=== PATIENT | female | born 1995 | race Caucasian/White ===

== ENCOUNTER 2017-03-13 16:52 | Emergency (ER) | payer BC ==
--- NOTE | 2017-03-13 17:02 | ED ---
Lower Extremity - HPI Summary HPI Summary: 21 YEAR OLD FEMALE PRESENTS WITH COMPLAINS OF LEFT ANKLE/BLOOM PAIN AFTER RUNNING - History of Current Complaint Chief Complaint: UCLowerExtremity Stated Complaint: ANKLE Time Seen by Provider: 03/13/17 16:59 Hx Obtained From: Patient Hx Last Menstrual Period: 03/07/17 Onset of Pain: Days Onset/Duration: Days Severity Initially: Moderate Severity Currently: Moderate Pain Scale Used: 0-10 Numeric - 7 - Allergies/Home Medications Allergies/Adverse Reactions: Allergies Allergy/AdvReac Type Severity Reaction Status Date / Time No Known Allergies Allergy Verified 03/13/17 16:54 PMH/Surg Hx/FS Hx/Imm Hx Previously Healthy: Yes Endocrine/Hematology History: Denies: Hx Diabetes, Hx Thyroid Disease Cardiovascular History: Denies: Hx Congestive Heart Failure, Hx Deep Vein Thrombosis, Hx Hypertension , Hx Myocardial Infarction, Hx Pacemaker/ICD Respiratory History: Denies: Hx Asthma, Hx Chronic Obstructive Pulmonary Disease (COPD), Hx Lung Cancer, Hx Pneumonia, Hx Pulmonary Embolism GI History: Denies: Hx Gall Bladder Disease, Hx Gastrointestinal Bleed, Hx Ulcer, Hx Urosepsis History: Denies: Hx Kidney Stones, Hx Renal Disease Musculoskeletal History: Reports: Other Musculoskeletal History - mid to low back pain, injury 2 weeks ago Sensory History: Denies: Hx Hearing Aid Neurological History: Denies: Hx Dementia, Hx Migraine, Hx Seizures, Hx Transient Ischemic Attacks (TIA) Psychiatric History: Denies: Hx Anxiety, Hx Depression, Hx Panic Disorder, Hx Schizophrenia, Hx Bipolar Disorder - Surgical History Surgery Procedure, Year, and Place: WISDOM TEETH REMOVED 2013 Infectious Disease History: No Infectious Disease History: Denies: Hx Clostridium Difficile, Hx Hepatitis, Hx Human Immunodeficiency Virus (HIV), Hx of Known/Suspected MRSA, Hx Shingles, Hx Tuberculosis, Hx Known/ Suspected VRE, Hx Known/Suspected VRSA, History Other Infectious Disease, Traveled Outside the [place] in Last 30 Days - Family History Known Family History: Positive: None - Social History Alcohol Use: None Substance Use Type: Reports: None Hx Tobacco Use: No Smoking Status (MU): Never Smoked Tobacco Have You Smoked in the Last Year: No Review of Systems Constitutional: Negative Eyes: Negative ENT: Negative Cardiovascular: Negative Respiratory: Negative Gastrointestinal: Negative Genitourinary: Negative Positive: Other - LEFT BLOOM PAIN Skin: Negative All Other Systems Reviewed And Are Negative: Yes Physical Exam Triage Information Reviewed: Yes Vital Signs On Initial Exam: Initial Vitals Temp Pulse Resp Pulse Ox 36.2 C 92 16 100 03/13/17 16:55 03/13/17 16:55 03/13/17 16:55 03/13/17 16:55 Vital Signs Reviewed: Yes Appearance: Positive: Well-Appearing Skin: Positive: Warm Head/Face: Positive: Normal Head/Face Inspection Eyes: Positive: Normal ENT: Positive: Normal ENT inspection Neck: Positive: Supple Respiratory/Lung Sounds: Positive: Clear to Auscultation Abdomen Description: Positive: Nontender Musculoskeletal: Positive: Other - LEFT BLOOM PAIN LEFT ANKLE PAIN Neurological: Positive: Normal Diagnostics - Vital Signs Vital Signs Temp Pulse Resp Pulse Ox 03/13/17 16:55 36.2 C 92 16 100 - Laboratory Lab Statement: Any lab studies that have been ordered have been reviewed, and results considered in the medical decision making process. Lower Extremity Course/Dx - Diagnoses Differential Diagnosis/HQI/PQRI: Positive: Contusion Provider Diagnoses: Left ankle pain, Pain in left bloom Discharge - Discharge Plan Condition: Stable Disposition: HOME Prescriptions: Ibuprofen TAB* [Motrin TAB* 800 MG] 800 mg PO Q8H #30 tab Patient Education Materials: Swollen Joint (ED) Referrals: Steve Goodwin MD [Medical Doctor] - Kirstie Flores MD [Primary Care Provider] -
--- NOTE | 2017-03-13 17:28 | RAD ---
HISTORY: Left lower tibial pain COMPARISONS: None VIEWS: 3, Frontal, lateral, and oblique views of the left ankle and distal foreleg FINDINGS: BONE DENSITY: Normal. BONES: There is no displaced fracture. JOINTS: There is no arthropathy. ALIGNMENT: There is no dislocation. SOFT TISSUES: Unremarkable. OTHER FINDINGS: None. IMPRESSION: NO ACUTE OSSEOUS INJURY. IF SYMPTOMS PERSIST, RECOMMEND REPEAT IMAGING.
== END 2017-03-13 17:41 | disposition home or self-care (01) ==
LOC: UCEAST 16:52
DX: M25.572 Pain in left ankle and joints of left foot (principal); M79.662 Pain in left lower leg
CPT/HCPCS: 99213; G0463

== ENCOUNTER 2018-01-18 20:02 | Emergency (ER) | payer BC ==
[2018-01-18 20:19] VITALS: BP 148/93
--- NOTE | 2018-01-18 20:47 | UC ---
Ear Complaint HPI - HPI Summary HPI Summary: ear ache for 3 days with some hearing loss--she has a history of multiple ear infections - History of Current Complaint Chief Complaint: UCEar Stated Complaint: EAR ACHE Time Seen by Provider: 01/18/18 20:33 Hx Obtained From: Patient Hx Last Menstrual Period: one week ago ?: No Onset/Duration: Gradual Onset, Lasting Days - 3, Still Present Pain Intensity: 7 Pain Scale Used: 0-10 Numeric Aggravating Factors: Nothing Alleviating Factors: Nothing Associated Signs/Symptoms: Positive: Hearing Loss - Allergies/Home Medications Allergies/Adverse Reactions: Allergies Allergy/AdvReac Type Severity Reaction Status Date / Time No Known Allergies Allergy Verified 01/18/18 20:19 Home Medications: Home Medications Ethinyl Estradiol/Drospirenone [Rosy 28 Tablet] 1 tab PO DAILY 01/18/18 [ History Confirmed 01/18/18] PMH/Surg Hx/FS Hx/Imm Hx Previously Healthy: Yes Other History Of: Negative For: HIV, Hepatitis B, Hepatitis C - Surgical History Surgical History: Yes Surgery Procedure, Year, and Place: WISDOM TEETH REMOVED 2013 - Family History Known Family History: Positive: None - Social History Occupation: Employed Full-time Lives: With Family Alcohol Use: None Substance Use Type: None Smoking Status (MU): Never Smoked Tobacco Have You Smoked in the Last Year: No Review of Systems Constitutional: Negative Skin: Negative Eyes: Negative ENT: Ear Ache - right Respiratory: Negative Cardiovascular: Negative Gastrointestinal: Negative Genitourinary: Negative Motor: Negative Neurovascular: Negative Musculoskeletal: Negative Neurological: Negative Psychological: Negative Is Patient Immunocompromised?: No All Other Systems Reviewed And Are Negative: Yes Physical Exam Triage Information Reviewed: Yes Appearance: Well-Appearing, No Pain Distress, Well-Nourished Vital Signs: Initial Vital Signs Temp 97.8 F 01/18/18 20:16 Pulse 85 01/18/18 20:16 Resp 18 01/18/18 20:16 BP 148/93 01/18/18 20:16 Pulse Ox 100 01/18/18 20:16 Vital Signs Reviewed: Yes Eye Exam: Normal Eyes: Positive: Conjunctiva Clear ENT Exam: Normal ENT: Positive: Normal ENT inspection, Hearing grossly normal, Pharynx normal, Nasal congestion, TMs normal - left, TM bulging - right, Uvula midline. Negative: Tonsillar swelling, Trismus, Muffled voice, Hoarse voice, Dental tenderness, Sinus tenderness Dental Exam: Normal Neck exam: Normal Neck: Positive: Supple, Nontender, No Lymphadenopathy Respiratory Exam: Normal Respiratory: Positive: Chest non-tender, Lungs clear, Normal breath sounds, No respiratory distress, No accessory muscle use Cardiovascular Exam: Normal Cardiovascular: Positive: RRR, No Murmur, Pulses Normal, Brisk Capillary Refill Musculoskeletal Exam: Normal Musculoskeletal: Positive: Strength Intact, ROM Intact, No Edema Neurological Exam: Normal Neurological: Positive: Alert, Muscle Tone Normal Psychological Exam: Normal Skin Exam: Normal Ear Complaint Course/Dx - Course Course Of Treatment: Augmentin, tylenol, ibuprofen follow bp with pcp and ear infection with Dr. luna - Differential Dx/Diagnosis Provider Diagnoses: ROM, elevated blood pressure without hx of hypertension Discharge - Sign-Out/Discharge Documenting (check all that apply): Patient Departure - Discharge Plan Condition: Stable Disposition: HOME Prescriptions: Amoxicillin/Clavulanate TAB* [Augmentin TAB 875*] 875 mg PO BID #19 tab Patient Education Materials: Ibuprofen (By mouth), Ear Infection (ED), Hypertension (ED) Referrals: Kirstie Flores MD [Primary Care Provider] - 2 Weeks Remington Luna MD [Medical Doctor] - 1 Week - Billing Disposition and Condition Condition: STABLE Disposition: Home
[2018-01-18] MEDS ORDERED: Amoxicillin/Clavulanate TAB* 875 MG PO ONE (20:57)
== END 2018-01-18 21:12 | disposition home or self-care (01) ==
LOC: UCEAST 20:02
DX: H66.91 Otitis media, unspecified, right ear (principal); R03.0 Elevated blood-pressure reading, without diagnosis of hypertension
CPT/HCPCS: 99213; A9270-GY; G0463

== ENCOUNTER → 2018-04-23 18:21 | Emergency (ER) | payer BC ==
[~2018-04-23 18:21] MED LIST: Aspirin 81 mg CHEW TAB* 81 MG TAB.CHEW ONE; Aspirin 81 mg CHEW TAB* 81 MG TAB.CHEW PO ONE; Aspirin EC TAB* 325 MG PO ONE; Nitrofurantoin Macrocrystals* 100 MG CAP PO ONE
[2018-04-23 19:26] LABS: ABS Basophils 0 10^3/ul (0-0.2); ABS Eosinophils 0 10^3/ul (0-0.6); ABS Lymphocytes 3.3 10^3/ul (1.0-4.8); ABS Monocytes 0.8 10^3/ul (0-0.8); ABS Neutrophils 4.3 10^3/ul (1.5-7.7); ABS Nucleated RBC 0 10^3/ul; Eosinophil % 0.5 % (0-6); Hematocrit 42 % (35-47); Hemoglobin 14.4 g/dl (12.0-16.0); Lymphocyte % 39.3 % (25-47); Mean Corpuscular HGB Conc 34 g/dl (31-36); Mean Corpuscular Hemoglobin 30 pg (27-31); Mean Corpuscular Volume 88 fL (80-97); Mean Platelet Volume 7.9 um3 (7.4-10.4); Nucleated Red Blood Cells % 0.1; Platelet Count 321 10^3/ul (150-450); Red Cell Distribution Width 14 % (10.5-15); White Blood Count 8.4 10^3/ul (3.5-10.8)
[2018-04-23 19:43] LABS: EGFR Non-African American 99.5 (>60)
[2018-04-23 20:11] LABS: Urine Appearance Clear; Urine Blood 1+ (Negative); Urine Color Yellow; Urine Ketones Negative (Negative); Urine Protein Negative (Negative); Urine Red Blood Cell Absent (Absent); Urine Specific Gravity 1.005 (1.010-1.030); Urine Urobilinogen Negative (Negative); Urine White Blood Cell Trace(0-5/hpf) (Absent)
[2018-04-23 21:14] VITALS: BP 131/79
--- NOTE | 2018-04-23 22:07 | ED ---
HPI Chest Pain - HPI Summary HPI Summary: 22-year-old female presents with chest pain for the past couple hours. States it is located on left-sided chest. She states that it is dull in nature. States is reproducible. She states that she has some left arm numbness that has resolved. She hasn't taking anything for her symptoms. She denies any shortness breath. No palpitations. She has history of a murmur. Has had an echo before as her brother has history of aortic stenosis. No bowel pain. She states she's been vomiting for the past couple days. She states that she felt sick the past couple days. No fevers. She admits to some generalized body aches. She denies any urinary symptoms. No cough. She has pain doesn't change with movement or position. - History of Current Complaint Chief Complaint: EDChestPainROMI Time Seen by Provider: 04/23/18 18:52 Hx Last Menstrual Period: one week ago Pain Intensity: 9 - Allergy/Home Medications Allergies/Adverse Reactions: Allergies Allergy/AdvReac Type Severity Reaction Status Date / Time No Known Allergies Allergy Verified 04/23/18 18:38 PMH/Surg Hx/FS Hx/Imm Hx Endocrine/Hematology History: Denies: Hx Diabetes, Hx Thyroid Disease Cardiovascular History: Denies: Hx Congestive Heart Failure, Hx Deep Vein Thrombosis, Hx Hypertension , Hx Myocardial Infarction, Hx Pacemaker/ICD Respiratory History: Denies: Hx Asthma, Hx Chronic Obstructive Pulmonary Disease (COPD), Hx Lung Cancer, Hx Pneumonia, Hx Pulmonary Embolism GI History: Denies: Hx Gall Bladder Disease, Hx Gastrointestinal Bleed, Hx Ulcer, Hx Urosepsis History: Denies: Hx Kidney Stones, Hx Renal Disease Musculoskeletal History: Reports: Other Musculoskeletal History - mid to low back pain, injury 2 weeks ago Sensory History: Denies: Hx Hearing Aid Neurological History: Denies: Hx Dementia, Hx Migraine, Hx Seizures, Hx Transient Ischemic Attacks (TIA) Psychiatric History: Denies: Hx Anxiety, Hx Depression, Hx Panic Disorder, Hx Schizophrenia, Hx Bipolar Disorder - Surgical History Surgery Procedure, Year, and Place: WISDOM TEETH REMOVED 2013 Infectious Disease History: No Infectious Disease History: Denies: Hx Clostridium Difficile, Hx Hepatitis, Hx Human Immunodeficiency Virus (HIV), Hx of Known/Suspected MRSA, Hx Shingles, Hx Tuberculosis, Hx Known/ Suspected VRE, Hx Known/Suspected VRSA, History Other Infectious Disease, Traveled Outside the [place] in Last 30 Days - Family History Known Family History: Positive: None, Cardiac Disease - Social History Alcohol Use: None Substance Use Type: Reports: None Hx Tobacco Use: No Smoking Status (MU): Never Smoked Tobacco Have You Smoked in the Last Year: No Review of Systems Negative: Fever Positive: Chest Pain Negative: Shortness Of Breath, Cough Negative: Abdominal Pain All Other Systems Reviewed And Are Negative: Yes Physical Exam Triage Information Reviewed: Yes Vital Signs On Initial Exam: Initial Vitals Temp Pulse Resp BP Pulse Ox 98.8 F 103 20 130/98 98 04/23/18 18:34 04/23/18 18:34 04/23/18 18:34 04/23/18 18:34 04/23/18 18:34 Vital Signs Reviewed: Yes Appearance: Positive: Well-Appearing Skin: Positive: Warm, Dry Head/Face: Positive: Normal Head/Face Inspection Eyes: Positive: Normal, Conjunctiva Clear ENT: Positive: Pharynx normal Respiratory/Lung Sounds: Positive: Clear to Auscultation, Breath Sounds Present , Other - reproducible chest pain Cardiovascular: Positive: Normal, RRR Abdomen Description: Positive: Nontender, Soft Bowel Sounds: Positive: Present Musculoskeletal: Positive: Normal Neurological: Positive: Normal Psychiatric: Positive: Normal Diagnostics - Vital Signs Vital Signs Temp Pulse Resp BP Pulse Ox 04/23/18 21:02 89 13 131/79 94 04/23/18 21:00 99 24 96 04/23/18 20:32 97 16 119/90 95 04/23/18 20:02 103 21 130/80 94 04/23/18 20:00 99 17 96 04/23/18 19:43 94 22 119/79 96 04/23/18 19:02 126/87 04/23/18 18:34 98.8 F 103 20 130/98 98 - Laboratory Lab Results: Lab Results 04/23/18 04/23/18 04/23/18 Range/Units 19:15 19:15 19:15 WBC 8.4 (3.5-10.8) 10^3/ul RBC 4.80 (4.00-5.40) 10^6/ul Hgb 14.4 (12.0-16.0) g/dl Hct 42 (35-47) % MCV 88 (80-97) fL MCH 30 (27-31) pg MCHC 34 (31-36) g/dl RDW 14 (10.5-15) % Plt Count 321 (150-450) 10^3/ul MPV 7.9 (7.4-10.4) um3 Neut % (Auto) 50.6 (38-83) % Lymph % (Auto) 39.3 (25-47) % Nelson % (Auto) 9.1 H (0-7) % Eos % (Auto) 0.5 (0-6) % Baso % (Auto) 0.5 (0-2) % Absolute Neuts (auto) 4.3 (1.5-7.7) 10^3/ul Absolute Lymphs (auto) 3.3 (1.0-4.8) 10^3/ul Absolute Monos (auto) 0.8 (0-0.8) 10^3/ul Absolute Eos (auto) 0 (0-0.6) 10^3/ul Absolute Basos (auto) 0 (0-0.2) 10^3/ul Absolute Nucleated RBC 0 10^3/ul Nucleated RBC % 0.1 D-Dimer, Quantitative < 200 (Less Than 230) ng/mL Sodium 139 (135-145) mmol/L Potassium 3.7 (3.5-5.0) mmol/L Chloride 105 (101-111) mmol/L Carbon Dioxide 27 (22-32) mmol/L Anion Gap 7 (2-11) mmol/L BUN 6 (6-24) mg/dL Creatinine 0.72 (0.51-0.95) mg/dL Est GFR ( Amer) 120.4 (>60) Est GFR (Non-Af Amer) 99.5 (>60) BUN/Creatinine Ratio 8.3 (8-20) Glucose 121 H (70-100) mg/dL Lactic Acid (0.5-2.0) mmol/L Calcium 9.6 (8.6-10.3) mg/dL Total Bilirubin 0.40 (0.2-1.0) mg/dL AST 86 H (13-39) U/L ALT 108 H (7-52) U/L Alkaline Phosphatase 59 (34-104) U/L Troponin I 0.00 (<0.04) ng/mL C-Reactive Protein 12.45 H (<8.01) mg/L Total Protein 7.5 (6.4-8.9) g/dL Albumin 4.1 (3.2-5.2) g/dL Globulin 3.4 (2-4) g/dL Albumin/Globulin Ratio 1.2 (1-3) Beta HCG, Quant < 0.60 mIU/mL Urine Color Urine Appearance Urine pH (5-9) Ur Specific [place] (1.010-1.030) Urine Protein (Negative) Urine Ketones (Negative) Urine Blood (Negative) Urine Nitrate (Negative) Urine Bilirubin (Negative) Urine Urobilinogen (Negative) Ur Leukocyte Esterase (Negative) Urine WBC (Auto) (Absent) Urine RBC (Auto) (Absent) Ur Squamous Epith Cells (Absent) Urine Bacteria (Absent) Urine Glucose (Negative) 04/23/18 04/23/18 04/23/18 Range/Units 19:15 19:50 21:18 WBC (3.5-10.8) 10^3/ul RBC (4.00-5.40) 10^6/ul Hgb (12.0-16.0) g/dl Hct (35-47) % MCV (80-97) fL MCH (27-31) pg MCHC (31-36) g/dl RDW (10.5-15) % Plt Count (150-450) 10^3/ul MPV (7.4-10.4) um3 Neut % (Auto) (38-83) % Lymph % (Auto) (25-47) % Nelson % (Auto) (0-7) % Eos % (Auto) (0-6) % Baso % (Auto) (0-2) % Absolute Neuts (auto) (1.5-7.7) 10^3/ul Absolute Lymphs (auto) (1.0-4.8) 10^3/ul Absolute Monos (auto) (0-0.8) 10^3/ul Absolute Eos (auto) (0-0.6) 10^3/ul Absolute Basos (auto) (0-0.2) 10^3/ul Absolute Nucleated RBC 10^3/ul Nucleated RBC % D-Dimer, Quantitative (Less Than 230) ng/mL Sodium (135-145) mmol/L Potassium (3.5-5.0) mmol/L Chloride (101-111) mmol/L Carbon Dioxide (22-32) mmol/L Anion Gap (2-11) mmol/L BUN (6-24) mg/dL Creatinine (0.51-0.95) mg/dL Est GFR ( Amer) (>60) Est GFR (Non-Af Amer) (>60) BUN/Creatinine Ratio (8-20) Glucose (70-100) mg/dL Lactic Acid 1.8 (0.5-2.0) mmol/L Calcium (8.6-10.3) mg/dL Total Bilirubin (0.2-1.0) mg/dL AST (13-39) U/L ALT (7-52) U/L Alkaline Phosphatase (34-104) U/L Troponin I 0.00 (<0.04) ng/mL C-Reactive Protein (<8.01) mg/L Total Protein (6.4-8.9) g/dL Albumin (3.2-5.2) g/dL Globulin (2-4) g/dL Albumin/Globulin Ratio (1-3) Beta HCG, Quant mIU/mL Urine Color Yellow Urine Appearance Clear Urine pH 6.0 (5-9) Ur Specific [place] 1.005 L (1.010-1.030) Urine Protein Negative (Negative) Urine Ketones Negative (Negative) Urine Blood 1+ A (Negative) Urine Nitrate Negative (Negative) Urine Bilirubin Negative (Negative) Urine Urobilinogen Negative (Negative) Ur Leukocyte Esterase 2+ A (Negative) Urine WBC (Auto) Trace(0-5/hpf) (Absent) Urine RBC (Auto) Absent (Absent) Ur Squamous Epith Cells Present A (Absent) Urine Bacteria 2+ A (Absent) Urine Glucose Negative (Negative) Result Diagrams: 04/23/18 19:15 04/23/18 19:15 Lab Statement: Any lab studies that have been ordered have been reviewed, and results considered in the medical decision making process. - Radiology chest Radiology Interpretation Completed By: ED Physician Summary of Radiographic Findings: nad - EKG No standard instances Cardiac Rate: NL EKG Rhythm: Sinus Rhythm Summary of EKG Findings: sinus rhythm Chest Pain Course/Dx - Course Course Of Treatment: 22-year-old female presents with chest pain for the past couple hours. States it is located on left-sided chest. She states that it is dull in nature. States is reproducible. She states that she has some left arm numbness that has resolved. She hasn't taking anything for her symptoms. She denies any shortness breath. No palpitations. She has history of a murmur. Has had an echo before as her brother has history of aortic stenosis. No bowel pain. She states she's been vomiting for the past couple days. She states that she felt sick the past couple days. No fevers. She admits to some generalized body aches. She denies any urinary symptoms. No cough. She has pain doesn't change with movement or position. On exam reproducible chest pain. EKG shows sinus rhythm. 2 troponins negative. D-dimer negative. heart score less than 1. Chest x-ray read by me as normal. explained Results with patient. Will treat as potential costochondritis with ibuprofen. Urine shows a UTI so we'll treat with Macrobid. Told to follow up primary. Patient understands and agrees with plan. - Chest Pain Differential Diagnosis/HQI/PQRI: Acute FL, Chest Wall, Pulmonary Embolism - Diagnoses Provider Diagnoses: Chest pain, UTI (urinary tract infection) Discharge - Sign-Out/Discharge Documenting (check all that apply): Patient Departure - Discharge Plan Condition: Good Disposition: HOME Prescriptions: Nitrofurantoin Monohyd/M-Cryst [Macrobid 100 mg Capsule] 100 mg PO BID #13 cap Patient Education Materials: Urinary Tract Infection in Women (ED), Noncardiac Chest Pain (ED) Forms: *Work Release Referrals: Kirstie Flores MD [Primary Care Provider] - Additional Instructions: take ibuprofen every 6 hours Take macrobid twice a day for 7 days follow up with primary within 5 days Return to ED if develop any new or worsening symptoms - Billing Disposition and Condition Condition: GOOD Disposition: Home
--- NOTE | 2018-04-24 07:56 | RAD ---
Indication: Chest pain. 2 views of the chest including dual energy PA views demonstrate no mediastinal shift. Heart is of normal size and configuration. Lung palacios are clear. When compared to previous exam of December 01, 2016 no significant change is noted. IMPRESSION: No active cardiopulmonary disease is noted. R0
== END | disposition home or self-care (01) ==
LOC: ED 18:21
DX: N39.0 Urinary tract infection, site not specified (principal); R07.9 Chest pain, unspecified
CPT/HCPCS: 36415; 71046; 80053; 81003; 81015; 83605; 84484; 84702; 85025; 85379; 86140; 87086; 93005; 99283; A9270-GY

== ENCOUNTER 2018-10-08 09:25 | Emergency (ER) | payer BC ==
[2018-10-08 09:45] VITALS: BP 127/88
--- NOTE | 2018-10-08 10:03 | UC ---
Back Pain HPI - HPI Summary HPI Summary: 23 yo female presents with left lower back pain since 10/04. 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 No specific injury. On 10/04 she noticed some left lower back pain that was worse with movement and bending. Since that time has progressed and gotten more painful. She has been taking ibuprofen with little relief. The pain now radiates down the back of her left leg. She denies numbness, tingling, saddle anesthesia, loss of bowel/bladder control, dysuria. - History of Current Complaint Chief Complaint: UCBackPain Stated Complaint: BACK INJURY Time Seen by Provider: 10/08/18 10:02 Hx Obtained From: Patient Hx Last Menstrual Period: no period, states ok with pcp Timing: Constant Severity Initially: Moderate Severity Currently: Severe Pain Intensity: 10 Pain Scale Used: 0-10 Numeric - Allergies/Home Medications Allergies/Adverse Reactions: Allergies Allergy/AdvReac Type Severity Reaction Status Date / Time No Known Allergies Allergy Verified 10/08/18 09:38 Home Medications: Home Medications Ibuprofen TAB* [Motrin TAB* 800 MG] 800 mg PO Q6H 10/08/18 [History Confirmed ] PMH/Surg Hx/FS Hx/Imm Hx - Additional Past Medical History Additional PMH: None Other History Of: Negative For: HIV, Hepatitis B, Hepatitis C - Surgical History Surgical History: Yes Surgery Procedure, Year, and Place: WISDOM TEETH REMOVED 2013 - Family History Known Family History: Positive: None, Cardiac Disease - Social History Occupation: Employed Full-time Lives: With Family Alcohol Use: None Substance Use Type: None Smoking Status (MU): Never Smoked Tobacco Have You Smoked in the Last Year: No Review of Systems All Other Systems Reviewed And Are Negative: Yes Constitutional: Positive: Negative Skin: Positive: Negative Respiratory: Positive: Negative Cardiovascular: Positive: Negative Neurovascular: Positive: Negative Musculoskeletal: Positive: Other: - Low back pain Neurological: Positive: Negative Psychological: Positive: Negative Physical Exam - Summary Physical Exam Summary: GENERAL: NAD. WDWN. No pain distress. SKIN: No rashes, sores, lesions, or open wounds. NECK: Supple. FROM. Nontender. No lymphadenopathy. CHEST: CTAB. No r/r/w. No accessory muscle use. Breathing comfortably and in no distress. CV: RRR. Without m/r/g. Pulses intact. Cap refill <2seconds MSK: TTP over LEFT lumbar paraspinal muscles and LEFT SI. Pain with flexion and extension of spine. Positive SLR LEFT for low back pain without radiation. Strength 5/5 B/L LEs including dorsiflexion and plantar flexion. FROM B/L LEs. No edema. NEURO: Alert. Sensations intact B/L LEs L3-S1. Reflexes intact PSYCH: Age appropriate behavior. Triage Information Reviewed: Yes Vital Signs: Initial Vital Signs Temp 97.5 F 10/08/18 09:39 Pulse 96 10/08/18 09:39 Resp 18 10/08/18 09:39 BP 127/88 10/08/18 09:39 Pulse Ox 99 10/08/18 09:39 Vital Signs Reviewed: Yes Back Pain Course/Dx - Course Course Of Treatment: Suspect sciatica. Will rx for flexeril and prednisone. For acute pain - mostly at bedtime, will rx for a short supply of norco not to be taken with flexeril. Pt voiced understanding and is agreeable with the plan. Advised to practice stretching and gentle movements of her lower back as per handout. iSTOP Reference #: [id number] - Differential Dx/Diagnosis Provider Diagnosis: Sciatica Discharge - Sign-Out/Discharge Documenting (check all that apply): Patient Departure All imaging exams completed and their final reports reviewed: No Studies - Discharge Plan Condition: Stable Disposition: HOME Prescriptions: Cyclobenzaprine TAB* [Flexeril 10 MG TAB*] 10 mg PO BID PRN #14 tab PRN Reason: Pain HYDROcodone/ACETAMIN 5-325 MG* [[place] 5-325 TAB*] 1 tab PO BID PRN #8 tab MDD 2 PRN Reason: Pain predniSONE TAB* [Deltasone 20 MG TAB*] 20 mg PO DAILY #10 tab Patient Education Materials: Sciatica (ED), Lower Back Exercises (ED) Referrals: Kirstie Flores MD [Primary Care Provider] - Additional Instructions: If you develop a fever, shortness of breath, chest pain, new or worsening symptoms - please call your PCP or go to the ED. May continue to take ibuprofen as directed for discomfort. Do not take the FLEXERIL and NORCO at the same time/together as these may make you too drowsy. - Billing Disposition and Condition Condition: STABLE Disposition: Home
== END 2018-10-08 10:41 | disposition home or self-care (01) ==
LOC: UCEAST 09:25
DX: M54.42 Lumbago with sciatica, left side (principal)
CPT/HCPCS: 99212; G0463

== ENCOUNTER 2019-07-21 09:06 | Emergency (ER) | payer BC ==
--- OUTSIDE RECORDS SUMMARY | 2019-07-21 09:12 | XMS REPORT | Continuity of Care Document ---
:1995 External Reference #:[id number] Author Name Govind Suh JR, DO Address [address], [place] [address] Care Team Providers Name Role Phone Kirstie Flores MD Care Team Information Claim Analyst [phone] Problems Active Problems Provider Date Cervicovaginal cytology: Low grade squamous Kirstie Folres MD Onset: 2016 intraepithelial lesion Polycystic ovary syndrome Govind Suh JR, DO Onset: 05/29/2019 Social History Type Date Description Comments Sex Unknown Tobacco Use Start: Unknown Never Smoked Cigarettes ETOH Use Does Not Drink Alcohol Recreational Drug Use Does Not Use Drugs Tobacco Use Start: Unknown Patient has never smoked Smoking Status Reviewed: 06/03/19 Patient has never smoked Exercise Type/Frequency Exercises regularly Seat Belt/Car Seat Always uses seat belt Allergies, Adverse Reactions, Alerts Description No Known Drug Allergies Medications Description No Active Medications Medications Administered in Office Medication SIG Qnty Indications Ordering Provider Date No PT Tbco SCRN RNG Kayla Jump, ANP-C 11/20/2018 Injection PT SCRN Tbco Id as Non User Kayla Jump, ANP-C 11/20/2018 Injection No PT Tbco SCRN RNG Kayla Jump, ANP-C 11/06/2018 Injection PT SCRN Tbco Id as Non User Kayla Jump, ANP-C 11/06/2018 Injection Immunizations CPT Code Status Date Vaccine Lot # [id number] Given 04/23/2017 Influenza Virus Vaccine, Quadrivalent, Split, Preservative Free 80591 Given 04/25/2016 Influenza Virus Vaccine, Quadrivalent, Slit Virus, Im Use Vital Signs Date Vital Result Comment 06/03/2019 9:25am BP Systolic 126 mmHg BP Diastolic 78 mmHg Height 69.25 inches 5'9.25" Weight 230.00 lb BMI (Body Mass Index) 33.7 kg/m2 Last Menstrual Period [id number] 0 Parity 0 02/17/2019 7:57am BP Systolic 124 mmHg BP Diastolic 82 mmHg Height 69.25 inches 5'9.25" Weight 221.00 lb BMI (Body Mass Index) 32.4 kg/m2 Last Menstrual Period [id number] 0 Results Test Acquired Date Facility Test Result H/L Range Note Laboratory test 06/03/2019 [facility] Hemoglobin A1c <pending> finding [place], [place] [id number] [phone] Laboratory test 02/20/2019 [facility] Progesterone 79 ng/dL 1 [place] [address] 17Hydroxy [phone] Laboratory test 02/17/2019 [facility] Hemoglobin A1c 6.1 % High 4.0-5.6 2 [place] [address] [phone] Laboratory test 02/06/2019 [facility] FSH 7.0 mIU/mL 3 [place] [address] [phone] TSH 2.21 mcIU/mL Normal 0.34-5.60 4 Testosterone Total 70.57 ng/dL High 8-60 5 HCG < 0.60 mIU/mL 6 Prolactin 10.9 ng/mL Normal 1.0-25.0 7 Estradiol 48 pg/mL 8 1 REFERENCE VALUE < 80 (Follicular) <285 (Luteal) ADDITIONAL INFORMATION This test was developed and its performance characteristics determined by [facility] in a manner consistent with CLIA requirements. This test has not been cleared or approved by the U.S. Food and Drug Administration. Test Performed by: [facility] [address] [place] [address] 2 Therapeutic target for the treatment of diabetes mellitus patients is <7% HBA1C, and in selective patients <6.0%. Please refer to [place] [employer] diabetic care guidelines for further information. 3 Normally menstruating females - Follicular phase 3 - 9 - Mid-cycle peak 4 - 23 - Luteal phase 1 - 6 Postmenopausal females 16 - 114 4 [id number] 5 [id number] 6 <5.0 Negative 5.0 - 25.0 Indeterminate (Repeat testing recommended after 72 hours) >25.0 Positive Perimenopausal women can display HCG levels of up to 20 mIU/mL 7 [id number] 8 Estradiols <40 pg/mL are sent to a reference lab for low range testing. Postmenopausal Females < 20 Ovulating females: by day in cycle relative to LH Peak Follicular phase - 12 10-50 - 4 60-200 Mid-cycle - 1 120-375 Luteal phase + 2 50-155 + 6 60-260 + 12 15-115 Procedures Description No Information Available Medical Devices Description No Information Available Encounters Type Date Location Provider Dx Diagnosis Office Visit 06/03/2019 [facility] Govind Suh JR, DO E28.2 Polycystic ovarian 9:30a syndrome Office Visit 02/17/2019 [facility] Govind Suh JR, DO E28.2 Polycystic ovarian 8:00a syndrome Office Visit 01/30/2019 [facility] Govind Suh JR, DO N91.1 Secondary amenorrhea 2:00p Assessments Date Code Description Provider 06/03/2019 E28.2 Polycystic ovarian syndrome Govind Suh JR, DO 02/17/2019 E28.2 Polycystic ovarian syndrome Govind Suh JR, DO 02/06/2019 N91.1 Secondary amenorrhea Kurt Avalos M.D. 02/06/2019 N91.1 Secondary amenorrhea Laboratory 01/30/2019 N91.1 Secondary amenorrhea Govind Suh JR, DO Plan of Treatment Future Appointment(s):07/10/2019 9:00 am - Govind Suh JR, DO at [facility] 8:30 am - Ultrasounds at [facility]06/03/2019 - Govind Suh JR, DOE28.2 Polycystic ovarian syndromeComments:Will repeat Hemoglobin A1c at this time, consider starting on Metformin for pre-diabetesWill obtain ALL PURPOSE CLERK TVUSN secondary to PCOS, Secondary Amenorrrhea and infertilityContinue Lifestyle changes and [facility] also [facility] re-start OCP's after USN while continuing to work on weight loss,until progress Functional Status Description No Information Available Mental Status Description No Information Available Referrals Refer to Reason for Referral Status Appt Date [facility] Weight loss counseling Closed [facility] [address] [place] [address] [phone]
--- OUTSIDE RECORDS SUMMARY | 2019-07-21 09:12 | XMS REPORT | Continuity of Care Document ---
:1995 External Reference #:[id number] Author Name Kirstie Flores M.D. (transmitted by agent of provider Day Pulliam) Address [address], [place] [address] Care Team Providers Name Role Phone Kirstie Flores MD - Internal Care Team Information Gas Appliance Repairer [phone] Medicine Vikash, Mesfin Faust0. - Obstetrics & Care Team Information Gas Appliance Repairer Gynecology Problems Active Problems Provider Date Cervicovaginal cytology: Low grade squamous Kirstie Flores M.D. Onset: 05/28 intraepithelial lesion Note: condyloma ( had colposcopy) Dr. Nixon Polycystic ovary syndrome Kirstie Flores M.D. Onset: 05/27/2019 Social History Type Date Description Comments Sex Unknown Tobacco Use Start: Unknown Never Smoked Cigarettes Tobacco Use Start: Unknown Never Smoked Cigars Tobacco Use Start: Unknown Never Smoked A Pipe ETOH Use Denies alcohol use Tobacco Use Start: Unknown Patient has never smoked Recreational Drug Use Denies Drug Use Smoking Status Reviewed: 05/27/19 Patient has never smoked Exercise Type/Frequency Exercises regularly Allergies, Adverse Reactions, Alerts Description No Known Drug Allergies Medications Active Medications SIG Qnty Indications Ordering Provider Date No Active Medications Unknown 05/27/2019 History Medications No Active Unknown 02/03/2019 - Medications 02/03/2019 Trazodone HCL 1tablets at 30tabs F51.02 Kirstie Flroes, 02/03/2019 - 50mg bedtime as M.D. 05/27/2019 Tablets needed for sleep Medications Administered in Office Medication SIG Qnty Indications Ordering Provider Date Polio,Unspecified Unknown 02/14/1999 Injection Polio,Unspecified Unknown 10/27/1994 Injection Polio,Unspecified Unknown 03/12/1994 Injection Polio,Unspecified Unknown 1993 Injection Immunizations CPT Code Status Date Vaccine Reaction Lot # [id number] Given 05/27/2019 Influenza Virus Vaccine, shot tolerated well, [id number] Quadrivalent, Split, no immediate reaction Preservative Free 87388 Given 04/29/2018 Influenza Virus Vaccine, No immediate [id number] Quadrivalent, Split, reaction. Preservative Free 35892 Given 04/23/2017 Influenza Virus Vaccine, Quadrivalent, Split, Preservative Free 36273 Given 04/25/2016 Influ Virus Vaccine, [id number] Quadrivalent, Split Virus, [place] [address] Given 06/04/2012 Tdap - Tetanus/Diptheria/Acellula r Pertussis 28761 Given 01/14/2010 Hepatitis A Vaccine Pediatric/Adolescent Dosage 2 Dose Schedule 79905 Given 12/23/2008 Human Papillomavirus Vaccine Types; Nonavalent 3 [place] [address] Given 08/24/2008 Human Papillomavirus Vaccine Types; Nonavalent 3 [place] [address] Given 08/24/2008 Hepatitis A Vaccine Pediatric/Adolescent Dosage 2 Dose Schedule 16546 Given 06/08/2008 Human Papillomavirus Vaccine Types; Nonavalent 3 [place] [address] Given 12/20/2004 Varicella (Chicken Pox) Immunization 59506 Given 11/17/2004 Tdap - Tetanus/Diptheria/Acellula r Pertussis 45793 Given 11/17/2004 Meningococcal Immunization 02515 Given 02/14/1999 Measles Mumps And Rubella MMR 13170 Given 02/14/1999 DTaP Vaccine Younger Than 7 56339 Given 10/27/1994 Measles Mumps And Rubella MMR 51019 Given 10/27/1994 DTaP Vaccine Younger Than 7 73720 Given 02/09/1994 Hep B Pediatric/Adolescent 52415 Given 02/09/1994 DTaP Vaccine Younger Than 7 24025 Given 1993 DTaP Vaccine Younger Than 7 63670 Given 1993 Hep B Pediatric/Adolescent 79876 Given 1993 DTaP Vaccine Younger Than 7 26523 Given 1993 Hep B Pediatric/Adolescent Vital Signs Date Vital Result Comment 05/27/2019 8:59am Height 71 inches 5'11" Weight 231.50 lb Heart Rate 70 /min BP Systolic 121 mmHg BP Diastolic 85 mmHg Body Temperature 98.5 F O2 % BldC Oximetry 97 % BMI (Body Mass Index) 32.3 kg/m2 02/03/2019 9:42am Height 71 inches 5'11" Weight 228.00 lb Heart Rate 74 /min BP Systolic Sitting 119 mmHg BP Diastolic Sitting 85 mmHg O2 % BldC Oximetry 95 % BMI (Body Mass Index) 31.8 kg/m2 Results Description No Information Available Procedures Description No Information Available Medical Devices Description No Information Available Encounters Type Date Location Provider Dx Diagnosis Office Visit 02/03/2019 9:50a [facility] Internal Medicine Kirstie Flores M.D. R51 Headache - Ccmob F51.02 Adjustment insomnia F41.9 Anxiety disorder, unspecified Assessments Date Code Description Provider 05/27/2019 Z00.00 Encounter for general adult medical Kirstie Flores M.D. examination without abno 05/27/2019 Z23 Encounter for immunization Kirstie Flores M.D. 05/27/2019 E28.2 Polycystic ovarian syndrome Kirstie Flores M.D. 05/27/2019 L23.5 Allergic contact dermatitis due to other Kirstie Flores M.D. chemical products 02/03/2019 R51 Headache Kirstie Flores M.D. 02/03/2019 F51.02 Adjustment insomnia Kirstie Flores M.D. 02/03/2019 F41.9 Anxiety disorder, unspecified Kirstie Flores M.D. Plan of Treatment 05/27/2019 - Kirstie Flores M.D.Z00.00 Encounter for general adult medical examination without abnoComments:VACCINES:Flu shot every year in the fall.(F) Pelvic Exam/Pap smear: every 3-5 years up to age 65 if low riskCardiovascular Disease: Cholesterol Screening test every 5 yearsEXERCISE:Leg exercise like walking is essential to maintaining independence!We would like to have a copy on file when you get your Health Care Proxy and Advance Directives completed.Z23 Encounter for kqgixwavlmskG77.2 Polycystic ovarian syndromeNew Labs:Basic Metabolic Panel, Ordered: 05/27/19Hemoglobin A1c (Glyco HGB), Ordered : 05/27/19L23.5 Allergic contact dermatitis due to other chemical productsComments:avoid shaving, use fragn[place] free deodarant , apply the steroid creme on a small patch first to makesure it does not get worse Functional Status Description No Information Available Mental Status Description No Information Available Referrals Description No Information Available
--- OUTSIDE RECORDS SUMMARY | 2019-07-21 09:12 | XMS REPORT | Continuity of Care Document ---
:1993 External Reference #:[id number] Author Name Helen Driscoll MD (transmitted by agent of provider Fern Rogers) Address [address], [place] [address] Care Team Providers Name Role Phone Kirstie Flores MD - Internal Care Team Information Fishing Tackle Repairer Medicine Vikash, Neetu Faust. - Obstetrics & Care Team Information Fishing Tackle Repairer [phone] Gynecology Problems Active Problems Provider Date Cervicovaginal [...] Use Denies Drug Use Smoking Status Reviewed: 06/24/19 Patient has never smoked Exercise Type/Frequency Exercises regularly Allergies, Adverse Reactions, Alerts Description No Known Drug Allergies Medications Active Medications SIG Qnty Indications Ordering Provider Date Amoxicillin Take 1 tab by 20caps R07.0 Helen Driscoll, 06/24/2019 500mg mouth twice MD Capsules daily for 10 days History Medications No Active Unknown 05/27/2019 - Medications 06/24/2019 No Active Unknown 02/03/2019 - Medications 02/03/2019 Trazodone HCL 1tablets at 30tabs F51.02 Kirstie Flores, 02/03/2019 - 50mg bedtime as M.D. 05/27/2019 Tablets needed for sleep Medications Administered in Office Medication SIG Qnty Indications Ordering Provider Date Polio,Unspecified Unknown 02/14/1999 Injection Polio,Unspecified Unknown 10/27/1994 Injection Polio,Unspecified Unknown 03/12/1994 Injection Polio,Unspecified Unknown 1993 Injection Immunizations CPT Code Status Date Vaccine Reaction Lot # [id number] Given 05/27/2019 Influenza Virus Vaccine, shot tolerated well, [id number] Quadrivalent, Split, no immediate reaction Preservative Free 82427 Given 04/29/2018 Influenza Virus Vaccine, No immediate [id number] Quadrivalent, Split, reaction. Preservative Free 41084 Given 04/23/2017 Influenza Virus Vaccine, Quadrivalent, Split, Preservative Free 33920 Given 04/25/2016 Influ Virus Vaccine, [id number] Quadrivalent, Split Virus, [place] [address] Given 06/04/2012 Tdap - Tetanus/Diptheria/Acellula r Pertussis 13658 Given 01/14/2010 Hepatitis A Vaccine Pediatric/Adolescent Dosage 2 Dose Schedule 53531 Given 12/23/2008 Human Papillomavirus Vaccine Types; [place]avalent 3 [place] [address] Given 08/24/2008 Human Papillomavirus Vaccine Types; [place]avalent 3 [place] [address] Given 08/24/2008 Hepatitis A Vaccine Pediatric/Adolescent Dosage 2 Dose Schedule 46688 Given 06/08/2008 Human Papillomavirus Vaccine Types; Nonavalent [address] [place] [address] Given 12/20/2004 Varicella (Chicken Pox) Immunization 83533 Given 11/17/2004 Tdap - Tetanus/Diptheria/Acellula r Pertussis 34307 Given 11/17/2004 Meningococcal Immunization 39749 Given 02/14/1999 Measles Mumps And Rubella MMR 63104 Given 02/14/1999 DTaP Vaccine Younger Than 7 77248 Given 10/27/1994 Measles Mumps And Rubella MMR 19721 Given 10/27/1994 DTaP Vaccine Younger Than 7 11090 Given 02/09/1994 Hep B Pediatric/Adolescent 89426 Given 02/09/1994 DTaP Vaccine Younger Than 7 90975 Given 1993 DTaP Vaccine Younger Than 7 13153 Given 1993 Hep B Pediatric/Adolescent 33028 Given 1993 DTaP Vaccine Younger Than 7 61879 Given 1993 Hep B Pediatric/Adolescent Vital Signs Date Vital Result Comment 06/24/2019 1:31pm Height 71 inches 5'11" Weight 235.00 lb Heart Rate 77 /min BP Systolic Sitting 126 mmHg BP Diastolic Sitting 85 mmHg Body Temperature 98.7 F O2 % BldC Oximetry 97 % BMI (Body Mass Index) 32.8 kg/m2 05/27/2019 8:59am Height 71 inches 5'11" Weight 231.50 lb Heart Rate 70 /min BP Systolic 121 mmHg BP Diastolic 85 mmHg Body Temperature 98.5 F O2 % BldC Oximetry 97 % BMI (Body Mass Index) 32.3 kg/m2 Results Description No Information Available Procedures Description No Information Available Medical Devices Description No Information Available Encounters Type Date Location Provider Dx Diagnosis Office Visit 05/27/2019 [facility] Internal Kirstie Flores, Z00.00 Encntr for general 9:10a Medicine - Letty Bray adult medical exam w/o abnormal findings Z23 Encounter for immunization E28.2 Polycystic ovarian syndrome L23.5 Allergic contact dermatitis due to other chemical products Office Visit 02/03/2019 9:50a [facility] Internal Medicine Kirstie Flores M.D. R51 Headache - Ccmob F51.02 Adjustment insomnia F41.9 Anxiety disorder, unspecified Assessments Date Code Description Provider 06/24/2019 R07.0 Pain in throat Helen Driscoll MD 05/27/2019 Z00.00 Encounter for general adult medical [...] unspecified Kirstie Flores M.D. Plan of Treatment 06/24/2019 - Helen Driscoll, MDR07.0 Pain in throatNew Medication:Amoxicillin 500 mg - Take 1 tab by mouth twice daily for 10 daysNew Labs:Rapid Strep A Request, Ordered: 06/24/19 Functional Status Description No Information Available Mental Status Description No Information Available Referrals Description No Information Available
[2019-07-21 09:21] VITALS: BP 124/75
--- NOTE | 2019-07-21 09:31 | UC ---
Lower Extremity/Ankle HPI - HPI Summary HPI Summary: 23 yo female 4 days s/p inversion injury/pain laterally remote hx fx - History of Current Complaint Chief Complaint: UCLowerExtremity Stated Complaint: SP FALL-LT ANKLE INJURY Time Seen by Provider: 07/21/19 09:25 Hx Obtained From: Patient Hx Last Menstrual Period: February 2018 Onset/Duration: Sudden Onset, Lasting Days Severity Initially: Moderate Severity Currently: Severe Pain Intensity: 8 Pain Scale Used: 0-10 Numeric Aggravating Factor(s): Standing, Ambulation Alleviating Factor(s): Rest, Elevation Able to Bear Weight: Yes Feet (Multiple View): 1 - tender here/some swelling - Allergies/Home Medications Allergies/Adverse Reactions: Allergies Allergy/AdvReac Type Severity Reaction Status Date / Time No Known Allergies Allergy Verified 07/21/19 09:14 Home Medications: Home Medications Ibuprofen TAB* [Advil TAB*] 600 mg PO Q6H PRN 07/21/19 [History Confirmed ] PMH/Surg Hx/FS Hx/Imm Hx Previously Healthy: Yes Other History Of: Negative For: HIV, Hepatitis B, Hepatitis C - Surgical History Surgical History: Yes Surgery Procedure, Year, and Place: , 2013 - Family History Known Family History: Positive: Cardiac Disease, Non-Contributory - Social History Alcohol Use: None Substance Use Type: None Smoking Status (MU): Never Smoked Tobacco Have You Smoked in the Last Year: No Review of Systems All Other Systems Reviewed And Are Negative: Yes Constitutional: Positive: Negative Skin: Positive: Negative Eyes: Positive: Negative ENT: Positive: Negative Respiratory: Positive: Negative Cardiovascular: Positive: Negative Gastrointestinal: Positive: Negative Genitourinary: Positive: Negative Motor: Positive: Negative Neurovascular: Positive: Negative Musculoskeletal: Positive: Arthralgia - left ankle Neurological: Positive: Negative Psychological: Positive: Negative Physical Exam Triage Information Reviewed: Yes Appearance: Well-Appearing, No Pain Distress, Well-Nourished Vital Signs: Initial Vital Signs Temp 98.3 F 07/21/19 09:12 Pulse 92 07/21/19 09:12 Resp 18 07/21/19 09:12 BP 124/75 07/21/19 09:12 Pulse Ox 98 07/21/19 09:12 Vital Signs Reviewed: Yes Eyes: Positive: Conjunctiva Clear ENT: Positive: Hearing grossly normal. Negative: Nasal congestion, Nasal drainage, Trismus, Muffled voice, Hoarse voice Dental Exam: Normal Neck: Positive: Supple, Nontender, No Lymphadenopathy Respiratory: Positive: Lungs clear, Normal breath sounds, No respiratory distress, No accessory muscle use Cardiovascular: Positive: RRR, No Murmur Bowel Sounds: Positive: Present Musculoskeletal: Positive: Other: - see image/antalgic gait Neurological: Positive: Alert Psychological Exam: Normal Skin Exam: Normal Diagnostics - Radiology No standard instances Radiology Interpretation Completed By: Radiologist Summary of Radiographic Findings: no fx Lower Extremity Course/Dx - Differential Dx/Diagnosis Provider Diagnosis: Left ankle sprain Discharge ED - Sign-Out/Discharge Documenting (check all that apply): Patient Departure All imaging exams completed and their final reports reviewed: Yes - Discharge Plan Condition: Stable Disposition: HOME Patient Education Materials: R.I.C.E. Treatment (ED), Ankle Sprain (ED) Referrals: Sabrina Salazar MD [Medical Doctor] - As Soon As Possible (call and ask for a [place] appt) - Billing Disposition and Condition Condition: STABLE Disposition: Home
== END 2019-07-21 10:30 | disposition home or self-care (01) ==
LOC: UCCORT 09:06
DX: S93.402A Sprain of unspecified ligament of left ankle, initial encounter (principal); Z87.828 Personal history of other (healed) physical injury and trauma; X58.XXXA Exposure to other specified factors, initial encounter; Y92.9 Unspecified place or not applicable
CPT/HCPCS: 99213; G0463